=== PATIENT | male | born 1945 | race Caucasian/White ===

== ENCOUNTER 2016-09-14 15:10 | Observation (INO) | payer MEDICARE, BC ==
--- NOTE | ~2016-09-14 | HP ---
History And Physical [id number] [place]. [address] NAME: MARTA NO JR : 49 STATUS : DIS Hilary PAT#: [id number] AGE: 71 ADM/REG DATE : 09/14/16 MR#: [id number] REPORT SERV DATE: 09/15/16 DICTATED BY: [facility] DATE: 09/15/16 REPORT STATUS : Draft TRANSCRIBED BY: MODCt DATE: 09/15/16 DATE OF ADMISSION: 09/14/2016 CHIEF COMPLAINT: Left ureteral calculus. HISTORY OF PRESENT ILLNESS: Mr. No is a 71-year-old male, patient of Dr. Kenton Barraza, who has had some gross hematuria mostly painless over the last two-three months. Dr. Barraza did a CT scan of the pelvis and a cystoscopy on him last week in the office. The patient was called and told that he had a left ureteral calculus. He was most asymptomatic until yesterday when he developed acute renal colic. There was nausea, vomiting, and severe flank pain. He cannot keep anything down at home, so he was brought in for observation to the hospital here. Since being in the hospital here, he has had some analgesics and antiemetics. Presently, he is completely comfortable and has no pain or discomfort anymore. He denies any fever, chills, nausea, or vomiting. As stated, he has had some intermittent hematuria. PAST MEDICAL HISTORY: Significant for diabetes, hypertension, acid reflux disease. MEDICATIONS: At home were aspirin, vitamin D, lisinopril; metformin, which has been on hold for his recent CT scan; turmeric; zinc; potassium. ALLERGIES: AMPICILLIN. SOCIAL HISTORY: He denies drug, alcohol, or tobacco abuse. REVIEW OF SYSTEMS: Significant for GERD and some hearing loss. Negative for any gouty arthritis. Negative for urolithiasis. PHYSICAL EXAMINATION: GENERAL: Shows a well-developed and well-nourished white male, in no acute distress. He is awake, alert, and oriented x3. VITAL SIGNS: He is afebrile. His last temperature was 97.5, blood pressure was 101/57, his pulse was 49. EYES: His sclerae are anicteric. NECK: Supple. LUNGS: Clear. HEART: Regular rate and rhythm. ABDOMEN: Soft and nontender. Left flank nontender, right flank nontender. EXTREMITIES: Lower extremities, no deformities. STUDIES: Serum creatinine 1.45. White count 9.6, hemoglobin 13, hematocrit 38%. KUB shows a suspicious calcification along the course of the left ureter just above the ureterovesical junction. IMPRESSION: A 5 mm left ureteral calculus that was symptomatic. He was brought in for History And Physical [address] [address] NAME: MARTA NO JR : 49 STATUS : DIS Hilary PAT#: [id number] AGE: 71 ADM/REG DATE : 09/14/16 MR#: [id number] REPORT SERV DATE: 09/15/16 DICTATED BY: [facility]O [facility] DATE: 09/15/16 REPORT STATUS : Draft TRANSCRIBED BY: KEEGAN DATE: 09/15/16 observation and treated with IV fluids, analgesics, and antiemetics. He is presently completely comfortable at the present time. PLAN: Dismissed to home with a strainer and on tamsulosin. He can follow up with Dr. Barraza as previously scheduled on Thursday (two days). PF/KEEGAN [facility] M.D. / [id number] CC: Jose Mukherjee M.D.
[2016-09-14 13:37] LABS: WBC (NOT ORDERED) (RFLEX) 0 (0-5)
[2016-09-14 13:45] LABS: BASOPHILS 0.2 %; BASOPHILS ABSOLUTE 0.02 10/3/uL (0.0-0.16); EOSINOPHILS 0 %; HEMATOCRIT 38.7 % (40.0-51.0); IMMATURE GRANULOCYTES 0.1 %; IMMATURE GRANULOCYTES ABSOLUTE 0.01 10/3/uL (0.0-0.11); LYMPHOCYTES 5.6 %; LYMPHOCYTES ABSOLUTE 0.54 10/3/uL (0.67-4.30); MANUAL DIFF NO %; MEAN CORPUS HGB CONC 33.6 g/dL (32.0-36.0); MEAN CORPUSCULAR HEMOGLOB 31.3 pg (26.0-34.0); MEAN CORPUSCULAR VOLUME 93.3 fL (80-100); MEAN PLATELET VOLUME 10.7 fL (9.2-13.0); MONOCYTES 4.8 %; MONOCYTES ABSOLUTE 0.46 10/3/uL (0.21-1.20); NEUTROPHILS 89.3 %; NEUTROPHILS ABSOLUTE 8.58 10/3/uL (2.02-8.40); PLATELET COUNT 225 10/3/uL (150-400); RBC DISTRIBUTION WIDTH 14.1 % (12.0-16.0); RED CELL COUNT 4.15 10/6/uL (4.7-6.1); WHITE BLOOD CELLS 9.6 10/3/uL (4.5-10.5)
[2016-09-14 13:48] LABS: ASCORBIC ACID (UR NOT ORDER) 40 (NEG); BILIRUBIN, URINE NEGATIVE (NEG); ER URINALYSIS TAT 0 Hrs 11 Mins; KETONE, URINE TRACE MG/DL (NEG); LEUKOCYTE ESTERASE(NOT OR NEG (NEG); NITRITE (URINE) NEG (NEG)
[2016-09-14 14:05] LABS: A/G RATIO 1.3 (0.7-1.9); ALKALINE PHOSPHATASE 40 U/L (45-117); BUN (BLOOD UREA NITROGEN) 16 MG/DL (6-23); CALCIUM, SERUM 9.2 MG/DL (8.5-10.4); CHLORIDE, SERUM 108 MMOL/L (96-112); CO2 (CARBON DIOXIDE) 22 MMOL/L (24-34); CREATININE 1.45 MG/DL (0.70-1.30); GFR AFRICAN AMERICAN 57 ML/MIN (>=60); GFR NON AFRICAN AMERICAN 49 ML/MIN (>=60); GLOBULIN 3.1 G/DL (2.5-4.1); POTASSIUM, SERUM 4.3 MMOL/L (3.5-5.3); SGOT(AST) 18 U/L (5-40); SGPT(ALT) 23 U/L (5-65); SODIUM, SERUM 139 MMOL/L (135-148); TOTAL BILIRUBIN 0.4 MG/DL (0-1.2); TOTAL PROTEIN 7.1 G/DL (6.0-8.5)
[2016-09-14 14:11] LABS: GLUCOSE, SERUM 184 MG/DL (60-99)
[~2016-09-14 15:10] MED LIST: ACT300 PO; ACTOS30 PO; ASAB PO; CALTRAT600 PO; CYANO1000T PO; GLUCCHONDR PO; GLUCOPHAGE1000 MG PO; GLUCPH PO; HALF81 PO; MAGOX4 PO; MULTIPLE VIT PO; POTASSIUM OTC PO; PRAVACHOL80 MG PO; PRIN10 PO; SINGULAIR1; TEARS PLUS OPH; TURMERIC PO; VITA10 PO; VITAMIN A8000 UNIT PO; VITAMIN B-121000 MC1 SL; VITAMIN D1000 UNI1 PO; ZESTRIL10 MG PO; ZINC PO
[2016-09-15] MEDS ORDERED: FLOMAX4 PO (11:31)
[2016-10-13] MEDS ORDERED: ALEVE220 MG PO (16:09)
== END 2016-09-15 12:09 | disposition home or self-care (01) ==
LOC: ER 15:10 → CDU1 15:16 → CDU2 15:47
PROVIDERS: Physician Assistant
DX: N20.1 Calculus of ureter (principal); N23 Unspecified renal colic; I10 Essential (primary) hypertension; E11.9 Type 2 diabetes mellitus without complications; K21.9 Gastro-esophageal reflux disease without esophagitis; Z88.1 Allergy status to other antibiotic agents; Z79.82 Long term (current) use of aspirin; Z79.84 Long term (current) use of oral hypoglycemic drugs; Z79.899 Other long term (current) drug therapy
CPT/HCPCS: 74000; 80053; 81001; 82962; 83690; 85025; 96374; 96375; 96376; 99285; A9270-GY; C9113; G0378; J1170; J2405